=== PATIENT | male | born 1980 ===

== ENCOUNTER 2018-02-22 18:16 | Emergency (ER) | payer SELFPAY ==
[2018-02-22 18:18] VITALS: BP 156/81; PULSE 102; RESP 20; TEMP 97.6; O2SAT 96
[2018-02-22] MEDS ORDERED: PROP20TA3 PO (18:39)
[2018-02-22] MEDS ORDERED: ASPI81CH6 CHEW (18:39)
--- NOTE | 2018-02-22 19:21 | PD ---
HPI . Rapid heartbeat Chief Complaint: Cardiac Complaint Time Seen by Provider: 19:09 Travel History International Travel<30 days: No Contact w/Intl Traveler<30days: No Traveled to known affect area: No History of Present Illness HPI This patient presents complaining with a CT attack. He has a history of numerous previous episodes of SVT. [place] 40 [place] prior to arrival. He states that he tried all of the techniques that he has been taught in the past but that they did not work. He states that his SVT stopped about the time he got here. History Social History Alcohol Use: Yes (RARE ) Tobacco Use: No Allergies-Medications (Allergen,Severity, Reaction): Coded Allergies: penicillin G (Verified Allergy, Intermediate, Hives, 02/22/18) Reported Meds & Prescriptions Reported Meds & Active Scripts Active Reported Aspirin Low Dose (Aspirin) 81 Mg Chew 81 Mg CHEW DAILY Propranolol (Propranolol HCl) 20 Mg Tab 20 Mg PO TID NEB Review of Systems Except as stated in HPI: all other systems reviewed are Neg Physical Exam Narrative GENERAL: Awake and alert and in no acute distress. SKIN: Warm and dry. HEAD: Normocephalic/atraumatic. EYES: Pupils are equal. Extraocular movements are intact. NECK: Normal range of motion. CARDIOVASCULAR: Regular rate and rhythm. RESPIRATORY: Nonlabored respirations. MUSCULOSKELETAL: Atraumatic. NEUROLOGICAL: Nonfocal. PSYCHIATRIC: Appropriate mood and affect. Data Data Last Documented VS Vital Signs Date Time Temp Pulse Resp B/P (MAP) Pulse Ox O2 Delivery O2 Flow Rate FiO2 02/22/18 18:35 101 18 97 02/22/18 18:18 97.6 156/81 (106) [facility] Medical Screen Exam Complete: Yes Emergency Medical Condition: No Differential Diagnosis Differential diagnosis of palpitations includes but is not limited to anxiety, SVT, aVF with RVR, VT, sinus tachycardia, PVCs Narrative Course This patient presents with chief complaint of SVT. His SVT converted about the time he got here. He has had this many times before. He states that he would not be here if the SVT had stopped before he got to the hospital. A medical screening exam was performed: At the time of evaluation the presenting medical condition was determined not to be of an emergent nature. The patient was given the option of receiving additional care, but declined. Patient was given options for additional community resources from which to obtain care. The Patient Has Been advised to seek medical attention for their presenting complaint. The patient has been advised to return to the ER at any time if an emergent condition develops. Primary Impression: Encounter for medical screening examination Condition: Cathy Nguyen MD Feb 22, 2018 19:21
== END 2018-02-22 19:20 | disposition left against medical advice (07) ==
LOC: NEPE 18:16
DX: Z03.89 Encounter for observation for other suspected diseases and conditions ruled out (principal)
CPT/HCPCS: 99281